=== PATIENT | female | born 1955 | race Caucasian/White ===

== ENCOUNTER 2017-06-07 06:06 | Inpatient (IN) | payer OTHER ==
[2017-05-27 11:13] VITALS: BMI 29.8
[2017-06-07] MEDS ORDERED: SODIUM CHLORIDE 0.9% P/F 10 ML VIAL IJ ONE (06:54)
[2017-06-07] MEDS ORDERED: MIDAZOLAM HCL 2 MG/2 ML SINGLE DOSE VIAL ONE ×2 (06:54→08:13)
[2017-06-07] MEDS ORDERED: BUPIVACAINE HCL/PF (5 MG/ML) 30 ML VIAL IJ ONE (06:54)
[2017-06-07] MEDS ORDERED: DEXAMETHASONE SOD PHOSPHATE/PF 10 MG/ML SDV ONE (06:54)
[2017-06-07] MEDS ORDERED: KETOROLAC TROMETHAMINE 60 MG/2 ML VIAL ONE (07:14)
[2017-06-07] MEDS ORDERED: TRANEXAMIC ACID 1000 MG/10 ML VIAL ONE ×3 (07:14→08:30)
[2017-06-07] MEDS ORDERED: ROPIVACAINE HCL 0.5% 30ML VIAL ONE ×2 (07:15→07:43)
[2017-06-07] MEDS ORDERED: EPINEPHrine/PF 1 MG/1 ML (1:1,000) AMPULE ONE (07:15)
[2017-06-07] MEDS ORDERED: morphine CARPU-JECT 10 MG/1 ML DISP.SYRIN ONE (07:15)
[2017-06-07] MEDS: oxyCODONE HCL 10 MG SUSTAINED ACTING TABLET PO ONE ×2 (07:45→13:08)
[2017-06-07] MEDS ORDERED: CEFAZOLIN 2 GM in DEXTROSE 5%-WATER - 100 ML IVPB ONE (08:07)
--- NOTE | 2017-06-07 08:07 | HP ---
History & Physical Update - History History: No Change - Physical Physical: No Change - Assessment Assessment: No Change - Plan Plan: No Change
[2017-06-07] MEDS ORDERED: methylPREDNISolone ACET (DEPO) 40 MG/1 ML VIAL ONE (08:25)
[2017-06-07] MEDS ORDERED: LIDOCAINE HCL 1%, 10 MG/ML (20ML VIAL) ONE (08:26)
[2017-06-07] MEDS ORDERED: ceFAZolin SODIUM 1 GM VIAL ONE (08:27)
[2017-06-07] MEDS ORDERED: PROPOFOL 20 ML ONE ×3 (08:44→10:11)
[2017-06-07] MEDS ORDERED: ePHEDrine SULFATE 50 MG/1 ML AMPULE ONE ×2 (10:06→10:07)
[2017-06-07] MEDS ORDERED: MAGNESIUM HYDROX 2400MG/30ML ORAL SUSPENSION 30 ML CUP PO PRN (11:09)
[2017-06-07] MEDS ORDERED: ONDANSETRON 4 MG/2 ML VIAL IVPB PRN (11:09)
[2017-06-07] MEDS ORDERED: MAG HYDROX/AL HYDROX/SIMETH 30 ML UNIT-DOSE CUP PO PRN (11:09)
--- NOTE | 2017-06-07 11:13 | OP ---
Operative Note - Note: Operative Date: 06/07/17 Pre-Operative Diagnosis: Right knee OA Operation: Compeuter NAvigated, Cruciate Retaining right knee arthroplasty Implants: Size 4 N, CR [employer]hews Femur, Size 2x13 All Poly tibial tray, 29 mm patella button Post-Operative Diagnosis: Same as Pre-op Surgeon: Hussain Perez Pull Worker: Floresita Pichardo Anesthesia: Spinal Operative Report Dictated: Yes
[2017-06-07] MEDS ORDERED: LACTATED RINGERS SOLUTION 1,000 ML IV SCH ×2 (11:15→13:13)
[2017-06-07] MEDS ORDERED: ACETAMINOPHEN 325 MG TABLET (FP) PO PRN (11:25)
[2017-06-07] MEDS ORDERED: oxyCODONE HCL 5 MG TABLET PO PRN (11:30)
[2017-06-07] MEDS: ACETAMINOPHEN 325 MG TABLET (FP) PO SCH ×3 (11:31→17:20)
--- NOTE | 2017-06-07 13:33 | CONSULT ---
Consultation: REQUESTING PROVIDER: Dr. Miller CONSULT REQUEST: We have been asked to medically evaluate this patient for medical management. HISTORY OF PRESENT ILLNESS: patient is a 62 y/o female with a past medical history of hyperlipidemia, GERD, and osteoarthritis s/p cholesytecomy. Patient is s/p right total knee replacement, POD #0, (spinal anesthesia) Dr Perez. Patient reports feeling well, she denies any paresthesia to the right lower extremity, pt reports minimal pain. REVIEW OF SYSTEMS: CONSTITUTIONAL: Absent: fever, chills, diaphoresis, generalized weakness, malaise, loss of appetite, weight change HEENT: Absent: rhinorrhea, nasal congestion, throat pain, throat swelling, difficulty swallowing, mouth swelling, ear pain, eye pain, visual changes CARDIOVASCULAR: Absent: chest pain, syncope, palpitations, irregular heart rate, lightheadedness , peripheral edema RESPIRATORY: Absent: cough, shortness of breath, dyspnea with exertion, orthopnea, wheezing, stridor, hemoptysis GASTROINTESTINAL: Absent: abdominal pain, abdominal distension, nausea, vomiting, diarrhea, constipation, melena, hematochezia GENITOURINARY: Absent: dysuria, frequency, urgency, hesitancy, hematuria, flank pain, genital pain MUSCULOSKELETAL: Present: right knee discomfort Absent: myalgia, arthralgia, joint swelling, back pain, neck pain SKIN: Absent: rash, itching, pallor HEMATOLOGIC/IMMUNOLOGIC: Absent: easy bleeding, easy bruising, lymphadenopathy, frequent infections ENDOCRINE: Absent: unexplained weight gain, unexplained weight loss, heat intolerance, cold intolerance NEUROLOGIC: Absent: headache, focal weakness or paresthesias, dizziness, unsteady gait, seizure, mental status changes, bladder or bowel incontinence PSYCHIATRIC: Absent: anxiety, depression, suicidal or homicidal ideation, hallucinations. PHYSICAL EXAMINATION Vital Signs - 24 hr 06/07/17 06/07/17 06/07/17 06:53 07:02 11:02 Temperature 97.6 F 97.9 F Pulse Rate 64 74 Respiratory 16 17 Rate Blood Pressure 139/77 139/71 O2 Sat by Pulse 98 100 Oximetry (%) GENERAL: Awake, alert, and fully oriented, in no acute distress. HEAD: Normal with no signs of trauma. EYES: Pupils equal, round and reactive to light, extraocular movements intact, sclera anicteric, conjunctiva clear. No lid lag. EARS, NOSE, THROAT: Ears normal, nares patent, oropharynx clear without exudates. Moist mucous membranes. NECK: Normal range of motion, supple without lymphadenopathy, JVD, or masses. LUNGS: Breath sounds equal, clear to auscultation bilaterally. No wheezes, and no crackles. No accessory muscle use. HEART: Regular rate and rhythm, normal S1 and S2 without murmur, rub or gallop. ABDOMEN: Soft, nontender, not distended, normoactive bowel sounds, no guarding, no rebound, no masses. No hepatomegaly or splenomegaly. MUSCULOSKELETAL: Normal range of motion at all joints. No bony deformities or tenderness. No CVA tenderness. UPPER EXTREMITIES: 2+ pulses, warm, well-perfused. No cyanosis. No clubbing. Cap refill <2 seconds. No peripheral edema. LOWER EXTREMITIES: 2+ pulses, warm, well-perfused. No calf tenderness. No peripheral edema. RIGHT LOWER EXTREMITY: aguacel dressing intact, no drainage noted, DOUG/SCD in place, less than 3 second capillary refill, +3 pedal pulse NEUROLOGICAL: Cranial nerves II-XII intact. Normal speech. Normal gait. PSYCHIATRIC: Cooperative. Good eye contact. Appropriate mood and affect. SKIN: Warm, dry, normal turgor, no rashes or lesions noted. Active Medications Generic Name Dose Route Start Last Admin Trade Name Freq PRN Reason Stop Dose Admin Acetaminophen 650 mg 06/07/17 11:30 06/07/17 13:08 Tylenol - PO 06/10/17 11:29 Not Given Q6H HESHAM Al Hydroxide/Mg Hydroxide 30 ml 06/07/17 11:09 Mylanta Oral Suspension - PO Q4H PRN DYSPEPSIA Aspirin 325 mg 06/07/17 22:00 Asa - PO BID HESHAM Celecoxib 200 mg 06/07/17 22:00 Celebrex - PO BID HESHAM Fentanyl 50 mcg 06/07/17 11:30 Sublimaze Injection - IVPUSH 06/10/17 11:31 [id number] PRN PAIN Cefazolin Sodium 50 mls @ 100 mls/hr 06/07/17 16:00 Ancef 1 Gm Premixed Ivpb - IVPB 06/08/17 00:29 Q8H [facility] Lactated Ringer's 1,000 mls @ 125 mls/hr 06/07/17 11:15 06/07/17 13:08 Lactated Ringers Solution IV 06/08/17 06:00 Not Given ASDIR HESHAM Magnesium Hydroxide 30 ml 06/07/17 11:09 Milk Of Magnesia - PO PRN PRN CONSTIPATION Multivitamins/Minerals/Vitamin C 1 tab 06/08/17 10:00 Tab-A-Vit - PO DAILY HESHAM Ondansetron HCl 4 mg 06/07/17 11:09 Zofran Injection IVPB Q6H PRN NAUSEA Oxycodone HCl 10 mg 06/07/17 22:00 Oxycontin - PO 06/10/17 11:30 BID HESHAM Oxycodone HCl 5 mg 06/07/17 11:30 Roxicodone - PO Q3H PRN PAIN LEVEL 1-5 Oxycodone HCl 10 mg 06/07/17 11:30 Roxicodone - PO Q3H PRN PAIN LEVEL 6-10 Pantoprazole Sodium 40 mg 06/08/17 10:00 Protonix - PO DAILY [facility] Senna/Docusate Sodium 2 tablet 06/07/17 22:00 Pericolace - PO BID [facility] ASSESSMENT/PLAN: 1) ortho: s/p right TKR POD #0 - prn pain medication - incentive spirometer - physical therapy as per orthopedist 2) card hyperlipdemia - resume home medication once cleared by ortho (fluvostatin) 3) gi GERD - continue protonix f/e/n - low cholesterol diet ppx - asa 325mg bid - scd/doug - protonix - oob - pt Dispo: We will continue to follow the patient. Thank you for this consultative opportunity. Visit type - Emergency Visit Emergency Visit: No - New Patient This patient is new to me today: Yes Date on this admission: 06/07/17 - Critical Care Critical Care patient: No
[2017-06-07] MEDS: CEFAZOLIN 1 GM/D5W 50 ML IVPB SCH ×2 (15:56→23:46)
[2017-06-07] MEDS: oxyCODONE HCL 5 MG TABLET PO PRN (20:40)
[2017-06-07] MEDS: SENNOSIDES/DOCUSATE COMBO (SENNA PLUS) TABLET (UD) PO SCH (21:13)
[2017-06-07] MEDS: oxyCODONE HCL 10 MG SUSTAINED ACTING TABLET PO SCH (21:13)
[2017-06-07] MEDS: ASPIRIN 325 MG TABLET PO SCH (21:13)
[2017-06-07] MEDS: CELECOXIB 200 MG CAPSULE PO SCH (21:14)
[2017-06-08] MEDS: ACETAMINOPHEN 325 MG TABLET (FP) PO SCH ×3 (06:41→17:27)
[2017-06-08 08:18] LABS: ANION GAP 6 (8-16); CO2 27 mmol/L (22-28); CREATININE 0.8 mg/dl (0.6-1.3); GLUCOSE,RANDOM 148 mg/dl (74-106); MCHC 34.7 g/dl (32.0-36.0); MEAN CELL VOLUME 92.2 fl (80-96); MEAN PLT VOLUME 8.7 fl (7.5-11.1); PLATELET COUNT 224 K/MM3 (134-434); RDW 13.1 % (11.6-15.6); WHITE BLOOD COUNT 13.9 K/mm3 (4.0-10.8)
[2017-06-08] MEDS: SENNOSIDES/DOCUSATE COMBO (SENNA PLUS) TABLET (UD) PO SCH ×2 (09:03→21:32)
[2017-06-08] MEDS: CELECOXIB 200 MG CAPSULE PO SCH ×2 (09:03→21:32)
[2017-06-08] MEDS: ASPIRIN 325 MG TABLET PO SCH ×2 (09:03→21:32)
[2017-06-08] MEDS: oxyCODONE HCL 10 MG SUSTAINED ACTING TABLET PO SCH ×2 (09:04→21:32)
[2017-06-08] MEDS: oxyCODONE HCL 5 MG TABLET PO PRN ×3 (09:05→21:32)
[2017-06-08] MEDS: MULTIVITAMINS (DAILY MVI) TABLET (FP) PO SCH (09:06)
[2017-06-08] MEDS: PANTOPRAZOLE 40 MG TABLET (FP) PO SCH (09:06)
--- NOTE | 2017-06-08 09:39 | PN ---
Progress Note (short form) - Note Progress Note: POD#1 Pt oob this am and seen with Dr. Perez. Pain controlled with oral medications. Tolerating a regular diet. Vital Signs Period Temp Pulse Resp BP Sys/Watts Pulse Ox Last 24 Hr 97.7 F-98.7 F 68-88 15-19 126-146/46-75 94-100 PE: GEN: appears comfortable CV: RRR Lungs: CTA b/l anteriorly Right knee dressing c/d/i with aquacel. Diana and SCDs in place b/l. No calf tenderness or swelling noted to LE. Dorsi/plantar flexion 5/5 b/l. CBC, BMP 07/18/17 07:30 07/18/17 07:30 A/P: POD #1, s/p Right knee arthroplasty Plan for Physcial therapy today, patient given exercises to complete while in bed/oob to chair. DVT ppx with ASA 325mg BID, DIANA, SCD Oral pain managment, oxycontin/osycodone for break thru pain IV abx completed
--- NOTE | 2017-06-08 11:58 | PN ---
Physical Exam: SUBJECTIVE: Patient seen and examined, ambulatory at bedside with the assistance of a walker, physical therapist at side, pt reports pain is well controlled, denies any chest pain or shortness of breath. OBJECTIVE: patient is a 62 y/o female with a past medical history of hyperlipidemia, GERD, and osteoarthritis s/p cholesytecomy. Patient is s/p right total knee replacement, POD # 1, (spinal anesthesia) Dr Perez. Vital Signs Period Temp Pulse Resp BP Sys/Watts Pulse Ox Last 24 Hr 97.7 F-98.7 F 68-88 16-18 126-146/64-75 94-99 GENERAL: The patient is awake, alert, and fully oriented, in no acute distress. HEAD: Normal with no signs of trauma. EYES: PERRL, extraocular movements intact, sclera anicteric, conjunctiva clear. No ptosis. ENT: Ears normal, nares patent, oropharynx clear without exudates, moist mucous membranes. NECK: Trachea midline, full range of motion, supple. LUNGS: Breath sounds equal, clear to auscultation bilaterally, no wheezes, no crackles, no accessory muscle use. HEART: Regular rate and rhythm, S1, S2 without murmur, rub or gallop. ABDOMEN: Soft, nontender, nondistended, normoactive bowel sounds, no guarding, no rebound, no hepatosplenomegaly, no masses. EXTREMITIES: 2+ pulses, warm, well-perfused, no edema. RIGHT LOWER EXTERMITY: aguacel dressing, cdi, scd/doug in place, less than 3 second capilary refill, +3 pedal pulse NEUROLOGICAL: Cranial nerves II through XII grossly intact. Normal speech, gait not observed. PSYCH: Normal mood, normal affect. SKIN: Warm, dry, normal turgor, no rashes or lesions noted Laboratory Results - last 24 hr 06/08/17 06/08/17 07:30 07:30 WBC 13.9 H RBC 4.08 Hgb 13.0 Hct 37.6 MCV 92.2 MCH 32.0 MCHC 34.7 RDW 13.1 Plt Count 224 MPV 8.7 Sodium 137 Potassium 4.6 Chloride 104 Carbon Dioxide 27 Anion Gap 6 L BUN 18 Creatinine 0.8 Random Glucose 148 H Calcium 9.0 Active Medications Generic Name Dose Route Start Last Admin Trade Name Freq PRN Reason Stop Dose Admin Acetaminophen 650 mg 06/07/17 11:30 06/08/17 10:54 Tylenol - PO 06/10/17 11:29 650 mg Q6H HESHAM Administration Al Hydroxide/Mg Hydroxide 30 ml 06/07/17 11:09 Mylanta Oral Suspension - PO Q4H PRN DYSPEPSIA Aspirin 325 mg 06/07/17 22:00 06/08/17 09:03 Asa - PO 325 mg BID HESHAM Administration Celecoxib 200 mg 06/07/17 22:00 06/08/17 09:03 Celebrex - PO 200 mg BID HESHAM Administration Magnesium Hydroxide 30 ml 06/07/17 11:09 Milk Of Magnesia - PO PRN PRN CONSTIPATION Multivitamins/Minerals/Vitamin C 1 tab 06/08/17 10:00 06/08/17 09:06 Tab-A-Vit - PO 1 tab DAILY HESHAM Administration Ondansetron HCl 4 mg 06/07/17 11:09 Zofran Injection IVPB Q6H PRN NAUSEA Oxycodone HCl 10 mg 06/07/17 22:00 06/08/17 09:04 Oxycontin - PO 06/10/17 11:30 10 mg BID HESHAM Administration Oxycodone HCl 5 mg 06/07/17 11:30 06/07/17 16:31 Roxicodone - PO 5 mg Q3H PRN Administration PAIN LEVEL 1-5 Oxycodone HCl 10 mg 06/07/17 11:30 06/08/17 09:05 Roxicodone - PO 10 mg Q3H PRN Administration PAIN LEVEL 6-10 Pantoprazole Sodium 40 mg 06/08/17 10:00 06/08/17 09:06 Protonix - PO 40 mg DAILY HESHAM Administration Senna/Docusate Sodium 2 tablet 06/07/17 22:00 06/08/17 09:03 Pericolace - PO 2 tablet BID HESHAM Administration ASSESSMENT/PLAN: 1) ortho: s/p right TKR POD #1 - prn pain medication - incentive spirometer - hgb 13.0 stable - physical therapy as per orthopedist 2) card hyperlipdemia - resume home medication once cleared by ortho (fluvostatin) 3) gi GERD - continue protonix f/e/n - low cholesterol diet ppx - asa 325mg bid - scd/doug - protonix - oob - pt Dispo: We will continue to follow the patient. Thank you for this consultative opportunity. Visit type - Emergency Visit Emergency Visit: No - New Patient This patient is new to me today: No - Critical Care Critical Care patient: No - Discharge Referral Referred to [facility] No
--- NOTE | 2017-06-08 17:50 | PN ---
Progress Note (short form) - Note Progress Note: S: Pt. sitting in a chair. No complaints O: VAS 2/10 A/P: POD #1 s/p right total knee replacement 1. Continue pain meds as ordered. 2. No apparent anesthetic complications
[2017-06-09 06:27] VITALS: BP 138/71; PULSE 84; TEMP 98.5
[2017-06-09] MEDS: ACETAMINOPHEN 325 MG TABLET (FP) PO SCH (06:28)
--- NOTE | 2017-06-09 08:25 | DS ---
Physical Exam: SUBJECTIVE: Patient seen and examined today. She states that she ambulate on her own to the restroom. Pain in knee is controlled with oral pain medications. OBJECTIVE: Vital Signs Temperature 98.5 F 06/09/17 06:00 Pulse Rate 84 06/09/17 06:00 Respiratory Rate 18 06/09/17 06:00 Blood Pressure 138/71 06/09/17 06:00 O2 Sat by Pulse Oximetry (%) 95 06/09/17 07:53 PHYSICAL EXAM GENERAL: The patient is awake, alert, and fully oriented, in no acute distress. LUNGS: Breath sounds equal, clear to auscultation bilaterally. HEART: Regular rate and rhythm, S1, S2 without murmur, rub or gallop. ABDOMEN: Soft, nontender, nondistended. EXTREMITIES: 2+ pulses, warm, well-perfused. Slight swelling to right knee. No erythema noted surrounding the dressing which remains intact with minimal blood stain to dressing. Right knee with full extension. NEUROLOGICAL: Normal speech, gait not observed. 5/5 dorsi/plantar flexion b/l. Leg raise weak on the right. PSYCH: Normal mood, normal affect. LABS Laboratory Tests 06/08/17 06/08/17 06/09/17 07:30 07:30 08:00 WBC 13.9 H 9.4 D Hct 37.6 35.0 MCV 92.2 92.1 Sodium 137 Potassium 4.6 Chloride 104 Carbon Dioxide 27 Anion Gap 6 L BUN 18 Creatinine 0.8 Random Glucose 148 H Calcium 9.0 HOSPITAL COURSE: Date of Admission:06/07/17 Date of Discharge: 06/09/17 The patient was admitted to the Med-Surg Unit after an elective repair of her Right knee osteoarthritis. Now, s/p right knee arthroplasty. Narcotic and non-narcotic pain management control was achieved with an oral and IV approach. Bridgette-operative IV ABX were administered. DVT prophylaxis was achieved with SCDs, TEds, early ambulation and Asprin 325mg bid. The patient ambulated with Physical Therapy and home PT will resume after discharge. Narcotic scripts were checked with [facility] prior to escibe. The discharge instructions and an oral pain management plan were reviewed with the patient. All questions answered. Above plan discussed with Dr. Perez and agreed. Minutes to complete discharge: 30 Visit type - Case Type Case Type: Scheduled Admission - Emergency Emergency Visit: No - New patient This patient is new to me today: No - Critical Care Critical Care patient: No
[2017-06-09 08:42] LABS: MCHC 34.8 g/dl (32.0-36.0); MEAN CELL VOLUME 92.1 fl (80-96); MEAN PLT VOLUME 8.7 fl (7.5-11.1); PLATELET COUNT 169 K/MM3 (134-434); WHITE BLOOD COUNT 9.4 K/mm3 (4.0-10.8)
[2017-06-09] MEDS: MULTIVITAMINS (DAILY MVI) TABLET (FP) PO SCH (09:00)
[2017-06-09] MEDS: CELECOXIB 200 MG CAPSULE PO SCH (09:00)
[2017-06-09] MEDS: PANTOPRAZOLE 40 MG TABLET (FP) PO SCH (09:00)
[2017-06-09] MEDS: SENNOSIDES/DOCUSATE COMBO (SENNA PLUS) TABLET (UD) PO SCH (09:00)
[2017-06-09] MEDS: ASPIRIN 325 MG TABLET PO SCH (09:00)
[2017-06-09] MEDS: oxyCODONE HCL 10 MG SUSTAINED ACTING TABLET PO SCH (09:01)
[2017-06-09] MEDS: oxyCODONE HCL 5 MG TABLET PO PRN (09:02)
--- NOTE | 2017-06-10 08:07 | SURG ---
Surgery Machine Package Sealer Note Machine Package Sealer: Floresita Pichardo PA-C Date of Service: 06/07/17 Diagnosis: Compeuter NAvigated, Cruciate Retaining right knee arthroplasty Procedure: Size 4 N, CR Wade and Nephews Femur, Size 2x13 All Poly tibial tray, 29 mm patella button I was present for the entirety of the operative procedure. For further detail, please refer to operative report. Visit type - Case Type Case Type: Scheduled Admission - Emergency Emergency Visit: No - New patient This patient is new to me today: Yes Date on this admission: 06/10/17 - Critical Care Critical Care patient: No
--- NOTE | 2017-06-10 15:18 | PATH ---
Surgical Pathology Report Patient Name: LEVON SWEENEY Med. Rec. #: [id number] /Age/Gender: 1955 (Age: 62) / F Account: [id number] Location: [facility] MED-SURG Taken: 06/07/2017 Received: 06/07/2017 Reported: 06/10/2017 Physicians: Hussain Perez M.D. Specimen(s) Received BONE RIGHT KNEE Clinical History Osteoarthritis right knee Final Diagnosis BONE AND SOFT TISSUE, RIGHT KNEE, REPLACEMENT: DEGENERATIVE JOINT DISEASE. Electronically Signed Manuel Patrick M.D. Gross Description Received in formalin labeled "bone right knee," is an 11.5 x 9.5 x 2.0 cm aggregate of multiple irregular portions of bone and soft tissue. The tibial plateau measures 7.0 x 5.3 x 1.8 cm. There is a focal 2.5 cm in greatest dimension area of eburnation present. The remaining articular surfaces are noriega-yellow and focally granular. The underlying trabecular bone is yellow and hard. Hat Blocking Operator sections are submitted in one cassette, following decalcification. 06/08/201706/08/2017
== END 2017-06-09 12:50 | disposition home health service (06) | DRG 470 ==
LOC: FM/S 06:06
PROVIDERS: ADMIT Orthopaedic Surgery; ATTEND Orthopaedic Surgery
PROC: 0SRC0J9 Replacement of Right Knee Joint with Synthetic Substitute, Cemented, Open Approach (ICD-10-PCS; principal; 2017-06-07 08:57)
PROC: 8E0Y0CZ Robotic Assisted Procedure of Lower Extremity, Open Approach (ICD-10-PCS; 2017-06-07 08:57)
DX: M17.11 Unilateral primary osteoarthritis, right knee (principal); E78.5 Hyperlipidemia, unspecified; K21.9 Gastro-esophageal reflux disease without esophagitis
CPT/HCPCS: 36415; 73560-TC-RT; 80048; 85027; 88304-TC; 88311-TC; 94010; 94760; 97116-GP; 97162-GP